=== PATIENT | male | born 1960 | race Hispanic/Latino ===

== ENCOUNTER 2017-05-31 04:17 | Emergency (ER) | payer OTHER ==
[~2017-05-31] VITALS: Ht 170.2 cm; Wt 77.1 kg
[~2017-05-31 04:17] MED LIST: IBUPROFEN PO; METFORMIN PO; PT DOESN'T KNOW MEDS; TYLENOL WITH C1 EACH PO
--- NOTE | 2017-05-31 05:23 | Diagnostic Imaging Report ---
FOOT LEFT COMPLETE HISTORY: Status post injury COMPARISON: None FINDINGS: Bones: No displaced fracture. Osseous alignment is within normal limits. Joints: The joint spaces are well-maintained. Soft tissues: The soft tissues appear unremarkable. IMPRESSION: No acute radiographic abnormality. Signed by: Dr. Per Echeverria M.D. on 05/31/2017 5:19 AM
--- NOTE | 2017-05-31 05:23 | Diagnostic Imaging Report ---
ANKLE 3+ VIEWS LEFT HISTORY: Status post injury COMPARISON: None FINDINGS: Bones: No displaced fracture. Osseous alignment is within normal limits. Joints: The joint spaces are well-maintained. Soft tissues: The soft tissues appear unremarkable. IMPRESSION: No acute radiographic abnormality. Signed by: Dr. Per Echeverria M.D. on 05/31/2017 5:20 AM
== END 2017-05-31 05:42 | disposition home or self-care (01) ==
LOC: ER 04:17
DX: S90.32XA Contusion of left foot, initial encounter (principal); Y93.39 Activity, other involving climbing, rappelling and jumping off; Y99.0 Civilian activity done for income or pay
CPT/HCPCS: 99283

== ENCOUNTER 2017-08-07 22:04 | Emergency (ER) | payer BC ==
[~2017-08-07] VITALS: Ht 170.2 cm; Wt 77.1 kg
--- OUTSIDE RECORDS SUMMARY | 2017-08-07 22:08 | XMS REPORT ---
[facility] Address Unknown Phone Unavailable Care Team Providers Care Medical Policy Specialist Name Role Phone MIAH PATTERSON Unavailable Unavailable Problems This patient has no known problems. Allergies, Adverse Reactions, Alerts This patient has no known allergies or adverse reactions. Medications This patient has no known medications. Results Test Description Test Time Test Comments Text Results Atomic Results Result Comments FOOT LEFT COMPLETE [place] [address] Patient Name: NATY MOHAMUD MR #: [id number] : 1960 Age/Sex: 57/M Req #: [id number] Adm Physician: Ordered by: MIAH PATTERSON MD Report #: [id number] Location: ER Room/Bed: ___ Procedure: [id number] DX/FOOT LEFT COMPLETE Exam Date: 05/31/17 Exam Time: 0435 REPORT STATUS: Signed FOOT LEFT COMPLETE HISTORY: Status post injury COMPARISON: None FINDINGS: Bones: No displaced fracture. Osseous alignment is within normal limits. Joints: The joint spaces are well-maintained. Soft tissues: The soft tissues appear unremarkable. IMPRESSION: No acute radiographic abnormality. Signed by: Dr. Per Echeverria M.D. on 2017 5:19 AM Dictated By: PER DUMONT MD [id number] Transcribed By: RACHEL on 518 COPY TO: MIAH PATTERSON MD ANKLE 3+ VIEWS LEFT [place] [address] Patient Name: NATY MOHAMUD MR #: [id number] : 1960 Age/Sex: 57/M Req #: [id number] Adm Physician: Ordered by: MIAH PATTERSON MD Report #: [id number] Location: ER Room/Bed: ___ Procedure: [id number] DX/ANKLE 3+ VIEWS LEFT Exam Date: 05/31/17 Exam Time: 0435 REPORT STATUS: Signed ANKLE 3+ VIEWS LEFT HISTORY: Status post injury COMPARISON: None FINDINGS: Bones: No displaced fracture. Osseous alignment is within normal limits. Joints: The joint spaces are well-maintained. Soft tissues: The soft tissues appear unremarkable. IMPRESSION: No acute radiographic abnormality. Signed by: Dr. Per Echeverria M.D. on 2017 5:20 AM Dictated By: PER DUMONT MD 9 Transcribed By: RACHEL on 519 COPY TO: MIAH PATTERSON MD
--- OUTSIDE RECORDS SUMMARY | 2017-08-07 22:08 | XMS REPORT | Continuity of Care Document ---
Author Author [facility] Organization [facility] Address [address] [place] [address] Phone Unavailable Care Team Providers Care Software Engineer Web Services Name Role Phone SALENA DIAZ MD PCP Insurance Providers Guarantor Naty Irwin Address [address] [place] [address] Email [email or web address] Ppo Policy Number [id number] Subscriber's Name Naty Irwin Relationship 18 Self / Same As Patient Group Number [id number] Group Name [employer] Effective Date 16 Advance Directives Directive Response Recorded Date/Time Does the patient have an advance directive? No 01/22/14 10:42am If yes, is advance directive on file with [facility]? No 01/22/14 10:42am If not on file with [facility] will patient provide a copy? No 11/01/15 1:30am Do you have a Directive to Physician? No 05/31/17 4:14am Do you have a Medical Power of Academic Coordinator? No 05/31/17 4:14am Do you have an out of hospital Do Not Resuscitate Order? No 05/31/17 4:14am Do you have any special needs we should be aware of? No 05/31/17 4:14am Do you have a support person here with you today? No 05/31/17 4:14am Did patient receive Notice of Privacy Practices? Yes 05/31/17 4:14am Did patient receive patient rights and responsibilities? Yes 05/31/17 4:14am Problems Medical Problem Onset Date Status Chest wall pain Unknown Acute Dehydration Unknown Acute Weakness Unknown Acute Medications Current Home Medications Medication Dose Units Route Directions Days Qty Instructions Start Date Metformin 250 Mg Oral Twice A Day Past Home Medications Medication Directions Ordered Status Acetaminophen With Codeine (Tylenol With Codeine #3 Tablet) 1 Each Tablet, 1-2 Tab Oral Every 6 Hours as needed for Pain Discontinued Ibuprofen , 800 Mg Oral As Needed Discontinued Pt Doesn't Know Meds , Discontinued Social History Social History Problem Response Recorded Date/Time Onset Date Status Hx Psychiatric Problems No 01/22/2014 10:42am Not Applicable Not Applicable Smoking Status Start Date Stop Date Never Smoker Hospital Discharge Instructions No hospital discharge instruction information available. Plan of Care Discharge Date 05/31/17 5:42am Disposition HOME, SELF-CARE Condition at Discharge Stable Instructions/Education Provided Contusion RICE Therapy Forms Provided Work/School Excuse Prescriptions See Medication Section Referrals LOR GARCIA MD Order Date: As needed Address: [address] [place] [address] [place] [id number] DHARMESH HUTCHISON MD Address: [address] [place] [address] [place] [address] Additional Instructions/Education WEAR SHOE DIRECTED WEIGHT BEARING TOLERATED FOLLOW UP WITH ORTHRO IN 5 DAYS IF PAIN IN NOTE BETTER TAKE TYLENOL AND MOTRIN NEEDED FOR PAIN RETURN TO THE ER NEEDED Functional Status No functional status information available. Allergies, Adverse Reactions, Alerts No known allergies. Immunizations No immunization information available. Vital Signs Acute Vital Signs Vital Response Date/Time Temperature (Fahrenheit) 98.4 degrees F (97.6 - 99.5) 10/24/2016 7:27pm Pulse Pulse Rate (adult) 64 bpm (60 - 90) 10/24/2016 7:27pm Respiratory Rate 17 bpm (12 - 24) 10/24/2016 7:27pm Blood Pressure 129/76 mm Hg 10/24/2016 7:27pm Height 5 ft 7 in 05/31/2017 4:44am Weight 170 lb 05/31/2017 4:44am Body Mass Index 26.6 kg/m^2 05/31/2017 4:44am Results Laboratory Results Test Name Result Units Flags Reference Collection Date/Time Result Date/ Time Comments White Blood Count 8.83 x10e3/uL 4.8-10.8 10/24/2016 6:03pm 10/24/2016 6 :17pm Red Blood Count 4.60 x10e6/uL 4.3-5.7 10/24/2016 6:03pm 10/24/2016 6: 17pm Hemoglobin 13.6 g/dL L 14.0-18.0 10/24/2016 6:03pm 10/24/2016 6:17pm Hematocrit 40.8 % 38.2-49.6 10/24/2016 6:03pm 10/24/2016 6:17pm Mean Corpuscular Volume 88.7 fL 81-99 10/24/2016 6:03pm 10/24/2016 6: 17pm Mean Corpuscular Hemoglobin 29.6 pg 28-32 10/24/2016 6:03pm 10/24/2016 6:17pm Mean Corpuscular Hemoglobin Concent 33.3 g/dL 31-35 10/24/2016 6:03pm 10/24/2016 6:17pm Red Cell Distribution Width 14.6 % H 11.7-14.4 10/24/2016 6:03pm 2016 6:17pm Platelet Count 234 x10e3/uL 140-360 10/24/2016 6:03pm 10/24/2016 6: 17pm Neutrophils (%) (Auto) 49.5 % 38.7-80.0 10/24/2016 6:03pm 10/24/2016 6: 17pm Lymphocytes (%) (Auto) 37.9 % 18.0-39.1 10/24/2016 6:03pm 10/24/2016 6: 17pm Monocytes (%) (Auto) 8.4 % 4.4-11.3 10/24/2016 6:03pm 10/24/2016 6: 17pm Eosinophils (%) (Auto) 3.4 % 0.0-6.0 10/24/2016 6:03pm 10/24/2016 6: 17pm Basophils (%) (Auto) 0.6 % 0.0-1.0 10/24/2016 6:03pm 10/24/2016 6:17pm IM GRANULOCYTES % 0.2 % 0.0-1.0 10/24/2016 6:03pm 10/24/2016 6:17pm Neutrophils # (Auto) 4.4 2.1-6.9 10/24/2016 6:03pm 10/24/2016 6:17pm Lymphocytes # (Auto) 3.4 H 1.0-3.2 10/24/2016 6:03pm 10/24/2016 6: 17pm Monocytes # (Auto) 0.7 0.2-0.8 10/24/2016 6:03pm 10/24/2016 6:17pm Eosinophils # (Auto) 0.3 0.0-0.4 10/24/2016 6:03pm 10/24/2016 6:17pm Basophils # (Auto) 0.1 0.0-0.1 10/24/2016 6:03pm 10/24/2016 6:17pm Absolute Immature Granulocyte (auto 0.02 x10e3/uL 0-0.1 10/24/2016 6: 03pm 10/24/2016 6:17pm Urine Color YELLOW YELLOW 10/24/2016 6:01pm 10/24/2016 6:31pm Urine Clarity CLEAR CLEAR 10/24/2016 6:01pm 10/24/2016 6:31pm Urine Specific [place] 1.030 H 1.010-1.025 10/24/2016 6:01pm 2016 6:31pm Urine pH 5 5 - 7 10/24/2016 6:01pm 10/24/2016 6:31pm Urine Leukocyte Esterase NEGATIVE NEGATIVE 10/24/2016 6:01pm 2016 6:31pm Urine Nitrite NEGATIVE NEGATIVE 10/24/2016 6:01pm 10/24/2016 6:31pm Urine Protein 1+ H NEGATIVE 10/24/2016 6:01pm 10/24/2016 6:31pm Urine Glucose (UA) NEGATIVE NEGATIVE 10/24/2016 6:01pm 10/24/2016 6: 31pm Urine Ketones NEGATIVE NEGATIVE 10/24/2016 6:01pm 10/24/2016 6:31pm Urine Urobilinogen 0.2 mg/dL 0.2 - 1 10/24/2016 6:01pm 10/24/2016 6: 31pm Urine Bilirubin NEGATIVE NEGATIVE 10/24/2016 6:01pm 10/24/2016 6: 31pm Urine Blood NEGATIVE NEGATIVE 10/24/2016 6:01pm 10/24/2016 6:31pm Urine WBC 0-5 /HPF 0-5 10/24/2016 6:01pm 10/24/2016 6:35pm Urine RBC 0-5 /HPF 0-5 10/24/2016 6:01pm 10/24/2016 6:35pm Urine Bacteria FEW /HPF NONE 10/24/2016 6:01pm 10/24/2016 6:35pm Urine Epithelial Cells FEW /LPF NONE 10/24/2016 6:01pm 10/24/2016 6: 35pm Urine Mucus MANY H RARE 10/24/2016 6:01pm 10/24/2016 6:35pm Sodium Level 143 mmol/L 136-145 10/24/2016 6:03pm 10/24/2016 6:36pm Potassium Level 4.6 mmol/L 3.5-5.1 10/24/2016 6:03pm 10/24/2016 6:36pm Chloride Level 108 mmol/L H 98-107 10/24/2016 6:03pm 10/24/2016 6:36pm Carbon Dioxide Level 23 mmol/L 22-29 10/24/2016 6:03pm 10/24/2016 6: 36pm Anion Gap 16.6 mmol/L H 8-16 10/24/2016 6:03pm 10/24/2016 6:36pm Blood Urea Nitrogen 15 mg/dL 7-26 10/24/2016 6:03pm 10/24/2016 6:36pm Creatinine 0.90 mg/dL 0.72-1.25 10/24/2016 6:03pm 10/24/2016 6:36pm BUN/Creatinine Ratio 17 6-25 10/24/2016 6:03pm 10/24/2016 6:36pm Estimat Glomerular Filtration Rate > 60 ML/MIN 60- 10/24/2016 6:03pm 6:36pm Ranges were taken from the National Kidney Disease Education Program and the National Kid[employer] Foundation literature. Reference ranges: 60 or greater: Normal 16-59 (for 3 consecutive months): Chronic kidney disease 15 or less: Kidney failure Glucose Level 102 mg/dL 74-118 10/24/2016 6:03pm 10/24/2016 6:36pm Calcium Level 9.8 mg/dL 8.4-10.2 10/24/2016 6:03pm 10/24/2016 6:36pm Total Bilirubin 0.3 mg/dL 0.2-1.2 10/24/2016 6:03pm 10/24/2016 6:36pm Aspartate Amino Transf (AST/SGOT) 25 IU/L 5-34 10/24/2016 6:03pm 2016 6:36pm Alanine Aminotransferase (ALT/SGPT) 20 IU/L 0-55 10/24/2016 6:03pm 03/2016 6:36pm Total Protein 7.7 g/dL 6.5-8.1 10/24/2016 6:03pm 10/24/2016 6:36pm Albumin 4.0 g/dL 3.5-5.0 10/24/2016 6:03pm 10/24/2016 6:36pm Globulin 3.7 g/dL H 2.3-3.5 10/24/2016 6:03pm 10/24/2016 6:36pm Albumin/Globulin Ratio 1.1 0.8-2.0 10/24/2016 6:03pm 10/24/2016 6: 36pm Alkaline Phosphatase 76 IU/L 40-150 10/24/2016 6:03pm 10/24/2016 6: 36pm Creatine Kinase 378 IU/L H 30-200 10/24/2016 6:03pm 10/24/2016 6:36pm Creatine Kinase MB 4.20 ng/mL 0.00-5.00 10/24/2016 6:03pm 10/24/2016 6: 43pm Troponin I 0.005 ng/mL 0-0.300 10/24/2016 6:03pm 10/24/2016 6:43pm Procedures Procedure Status Date Provider(s) Computed tomography of brain without radiopaque contrast Active 10/24/16 EDWARDO COLLADO MD Encounters Encounter Location Arrival/Admit Date Discharge/Depart Date Attending Provider Departed Emergency Room [facility] 05/31/17 4:17am 5:42am MIAH PATTERSON MD Departed Emergency Room [facility] 10/24/16 5:40pm 7:37pm EDWARDO COLLADO MD
== END 2017-08-07 23:08 | disposition left against medical advice (07) ==
LOC: ER 22:04

== ENCOUNTER 2017-09-10 10:41 | Emergency (ER) | payer OTHER ==
[~2017-09-10] VITALS: Ht 170.2 cm; Wt 78.0 kg
--- NOTE | 2017-09-10 11:17 | Diagnostic Imaging Report ---
PROCEDURE:LOWER LEG LEFT TECHNIQUE:AP and lateral views left tibia totaling 3 radiographs. INDICATION:Fall COMPARISON:None. FINDINGS: The left tibia, fibula and imaged regional skeleton are intact and in anatomic alignment. CONCLUSION: No evidence of acute traumatic injury. Dictated by: Davon Colvin M.D. on 09/10/2017 at 11:20 Electronically approved by: Davon Colvin M.D. on 09/10/2017 at 11:20
[2017-09-10] MEDS ORDERED: KETOROLAC TROMETHAMINE 30 MG/ML VIAL IV STA (11:52)
[2017-09-10] MEDS ORDERED: KETOROLAC TROMETHAMINE 60 MG/2 ML VIAL IM ONE (12:00)
[2017-09-10] MEDS ORDERED: DIAZEPAM 2 MG TAB PO ONE (12:00)
--- NOTE | 2017-09-10 13:13 | Diagnostic Imaging Report ---
PROCEDURE:LUMBAR 3 VIEW TECHNIQUE:AP, lateral and cone-down lateral views lumbar spine. INDICATION:Fall. COMPARISON:None. FINDINGS: 5 [id number] lumbar vertebral bodies. Vertebral body and disc space height are maintained. Intact facets. Image regional skeleton is intact. Trace endplate degenerative change at the superior anterior corner of L5. CONCLUSION: No evidence of acute traumatic injury. Dictated by: Davon Colvin M.D. on 09/10/2017 at 13:17 Electronically approved by: Davon Colvin M.D. on 09/10/2017 at 13:17
[2017-09-10 14:12] VITALS: BP 125/60
--- NOTE | 2017-09-10 15:52 | Diagnostic Imaging Report ---
History: \S\FELL HIT OCCIPUT Comparison studies: Head CT's on 09/08/2015 and 10/24/2016 Technique: Axial images were obtained from the skull base to the vertex. Coronal and sagittal reconstructions obtained from the axial data. Findings: Scalp/skull: No abnormalities. No fractures, blastic or lytic lesions. Extra-axial spaces: No masses. No fluid collections. Brain sulci: Appropriate for age. Ventricles: Normal in size and configuration. No hydrocephalus. Parenchyma: No abnormal densities. No masses, hemorrhage, acute or chronic cortical vascular insults. Sellar/suprasellar region: No abnormalities Craniocervical junction: Patent foramen magnum. No Chiari one malformation. IMPRESSION: No abnormalities. No changes when compared to the previous head CT's. Preliminary report provided to Dr. Greco at 12:02 PM on 09/10/[address] Deng. Signed by: Dr. Keenan Potter M.D. on 09/10/2017 3:48 PM
--- NOTE | 2017-09-10 15:54 | Diagnostic Imaging Report ---
History: Fall Comparison studies: None Technique: Axial images were obtained through the cervical region.. Coronal and sagittal images reconstructed from the axial data.. Intravenous contrast: None Findings: Airway: Patent. Fractures: None. Soft tissues: No gross abnormalities. Atlantoaxial articulation: Intact. Alignment: Normal lordosis. No scoliosis. Cervicomedullary junction: No abnormalities. The foramen magnum is patent. Vertebrae: No infection or neoplasm. Degenerative changes: 3 mm central disc protrusion at C4-5 does not result in spinal canal stenosis. Mild right foraminal stenosis at C6-C7 due to uncoarthrosis. IMPRESSION: No acute abnormalities. Cannot adequately evaluate for spinal cord, vascular or ligament abnormalities. Preliminary report provided to Dr. Greco at 12:02 PM on 09/10/[address] Deng. Signed by: Dr. Keenan Potter M.D. on 09/10/2017 3:50 PM
== END 2017-09-10 14:30 | disposition home or self-care (01) ==
LOC: ER 10:41
DX: S00.83XA Contusion of other part of head, initial encounter (principal); S80.12XA Contusion of left lower leg, initial encounter; S30.0XXA Contusion of lower back and pelvis, initial encounter; S33.5XXA Sprain of ligaments of lumbar spine, initial encounter; W01.0XXA Fall on same level from slipping, tripping and stumbling without subsequent striking against object, initial encounter; Y93.01 Activity, walking, marching and hiking; Y92.238 Other place in hospital as the place of occurrence of the external cause
CPT/HCPCS: 70450; 72100; 72125; 99284; J1885

== ENCOUNTER → 2017-09-15 | Day surgery (SDC) | payer BC ==
[~2017-09-15] MED LIST changes: +FENTANYL CITRATE/PF 100MCG/2 ML INJ ONE; +LIDOCAINE HCL 2% LOCAL INJ 5 ML SDV VIAL INJ ONE; +MIDAZOLAM HCL 2 MG/2 ML VIAL ONE; +PROPOFOL IV EMULSION 10 MG/ML 20 ML VIAL ONE
--- NOTE | 2017-09-15 18:58 | Operative Report ---
DATE OF PROCEDURE: September 15, 2017 REFERRING PHYSICIAN: Dr. Jay Wright. OPERATIONS PERFORMED 1. Esophagogastroduodenoscopy with esophageal dilatation and biopsies. 2. Colonoscopy with polypectomy. INDICATIONS FOR EGD: Dysphagia, history of heartburn, and indigestion. INDICATIONS FOR COLONOSCOPY: Colorectal cancer screening, personal history of colon polyps. MEDICATION: Patient was done under MAC. Please see anesthesiologist's note. PROCEDURE IN DETAIL: With the patient in left lateral decubitus position, flexible fiberoptic Olympus gastroscope was introduced into the esophagus under direct visualization without any difficulty. There were some erosions noted in the distal esophagus. Tongues of velvety red mucosa were noted to extend proximally from the GE junction and biopsies were obtained to rule out Gasca's. There was some patchy nodularity noted at the GE junction and biopsies were obtained. A mild stricture was noted at the GE junction that was dilated to size 52-Mauritanian Jasso. The scope was then advanced with ease into the stomach traversing a small hiatal hernia. Mucosa overlying the antrum and the body revealed some patchy erythema and low-grade to moderate edema and biopsies were obtained sent to stain for H. pylori. Pylorus appeared to be of normal contour and shape, was intubated with ease, and the scope was advanced all the way to the 2nd portion of the duodenum. The scope was then withdrawn slowly and mucosa overlying the proximal 2nd portion as well as the duodenal bulb appeared to be within normal limits. The scope was then withdrawn back into the stomach and retroflexed. Mucosa overlying the fundus and the cardia appeared to be within normal limits. The scope was then straightened out and was subsequently withdrawn. Patient tolerated the procedure well. IMPRESSION 1. Distal esophagitis. 2. Rule out Gasca's esophagus. 3. Gastroesophageal junction, with patchy nodularity, biopsied. 4. 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 5. Small hiatal hernia. 6. Gastritis, biopsied. Biopsies sent to stain for H. pylori. PLAN: Follow up histology. Initiate Protonix 40 mg 1 p.o. q.a.m. a.c. Patient was then turned around and after adequate lubrication of the anal canal, a flexible fiberoptic Olympus colonoscope was inserted into the rectum with ease and advanced to the proximal ascending colon. Prep overall was poor with [id number] amount of retained fecal material in the colon. The scope was then withdrawn slowly. Whatever was visualized, the mucosa overlying the ascending, transverse, and descending appeared to be within normal limits. One polyp was hot biopsied from the sigmoid and 3 polyps were hot biopsied from the rectum. The scope was then retroflexed into the distal rectum and small internal hemorrhoids were noted, none of which is actively bleeding. The scope was then straightened out and was subsequently withdrawn. Patient tolerated the procedure well. IMPRESSION 1. Poor prep. 2. Sigmoid colon polyp, hot biopsied. 3. Rectal polyps, hot biopsied x3. 4. Internal hemorrhoids, none actively bleeding. PLAN: Follow up histology. Patient will need a repeat colonoscopy after a better prep. Job#: [id number] PKU cc:Dr. Jay Wright
== END | disposition home or self-care (01) ==
LOC: OR 11:07
PROVIDERS: ATTEND Internal Medicine Gastroenterology
DX: Z12.11 Encounter for screening for malignant neoplasm of colon (principal); K63.5 Polyp of colon; K62.1 Rectal polyp; K22.2 Esophageal obstruction; K29.70 Gastritis, unspecified, without bleeding; K22.10 Ulcer of esophagus without bleeding; K21.0 Gastro-esophageal reflux disease with esophagitis; K31.89 Other diseases of stomach and duodenum; K44.9 Diaphragmatic hernia without obstruction or gangrene; K64.8 Other hemorrhoids; K59.00 Constipation, unspecified; J45.909 Unspecified asthma, uncomplicated; E11.9 Type 2 diabetes mellitus without complications; Z01.810 Encounter for preprocedural cardiovascular examination; Z79.84 Long term (current) use of oral hypoglycemic drugs; Z87.891 Personal history of nicotine dependence
CPT/HCPCS: 36415; 43239; 43450; 45384; 82948; 93005; J2001; J2250

== ENCOUNTER 2017-09-23 11:39 | Emergency (ER) | payer BC ==
[~2017-09-23] VITALS: Ht 170.2 cm; Wt 78.0 kg
[~2017-09-23 11:39] MED LIST changes: -FENTANYL CITRATE/PF 100MCG/2 ML INJ ONE; -LIDOCAINE HCL 2% LOCAL INJ 5 ML SDV VIAL INJ ONE; -MIDAZOLAM HCL 2 MG/2 ML VIAL ONE; -PROPOFOL IV EMULSION 10 MG/ML 20 ML VIAL ONE
[2017-09-23] MEDS ORDERED: HYDROCODONE/APAP 5MG-325MG TAB PO ONE (12:15)
--- NOTE | 2017-09-23 12:44 | Diagnostic Imaging Report ---
EXAMINATION: Head CT HISTORY: Status post fall, headache for the last 2 weeks COMPARISON: Head CT on 09/10/2017 TECHNIQUE: Multidetector axial images were obtained without contrast from the foramen magnum to the vertex . The images were reconstructed using brain and bone algorithms. Thin section brain images were reformatted into coronal and sagittal planes. Intravenous contrast: None. Motion/streaking artifact limits the evaluation of the skull base and posterior cranial fossa. FINDINGS: Parenchyma: 1. No abnormal densities. 2. No mass or hemorrhage. No CT evidence of acute territorial vascular insult. Extra-axial spaces:No abnormal density. No extra-axial fluid collections Brain volume: Normal for age. Ventricles: No hydrocephalus or displacement. Arteries: No density suggestive of thrombus. Dural sinuses: No abnormal density. Extra-axial spaces: No abnormal density. Foramen magnum: No mass, Chiari malformation, or basilar invagination. Sella: No obvious mass. Paranasal/mastoid sinuses: Imaged portions unremarkable. Skull/Scalp: No lytic or blastic lesions. No fractures. IMPRESSION: No intracranial abnormalities, particularly no hemorrhage. Unchanged from recent head CT 09/10/2017 Signed by: Dr. Anna Tucker M.D. on 09/23/2017 12:40 PM
== END 2017-09-23 13:24 | disposition home or self-care (01) ==
LOC: ER 11:39
DX: G44.311 Acute post-traumatic headache, intractable (principal); W01.0XXA Fall on same level from slipping, tripping and stumbling without subsequent striking against object, initial encounter; Y93.01 Activity, walking, marching and hiking; Y92.481 Parking lot as the place of occurrence of the external cause; E11.9 Type 2 diabetes mellitus without complications
CPT/HCPCS: 70450; 99284

== ENCOUNTER → 2019-06-10 | Outpatient (CLI) | payer OTHER | LOC: RAD 05:00 → EDSTATUS 06-14 13:00 | PROVIDERS: ATTEND Internal Medicine Gastroenterology | DX: Z01.818 Encounter for other preprocedural examination (principal); R13.10 Dysphagia, unspecified; R12 Heartburn; K29.70 Gastritis, unspecified, without bleeding; K20.9 Esophagitis, unspecified; Z86.010 Personal history of colon polyps | CPT/HCPCS: 93005 ==

== ENCOUNTER 2019-06-21 11:35 | Emergency (ER) | payer OTHER ==
[~2019-06-21] VITALS: Ht 170.2 cm; Wt 78.0 kg
[2019-06-21] MEDS ORDERED: KETOROLAC TROMETHAMINE 30 MG/ML VIAL IV STA (11:48)
[2019-06-21] MEDS ORDERED: SODIUM CHLORIDE 0.9% 1000ML 1,000 ML IV STA (11:48)
[2019-06-21] MEDS ORDERED: DIPHENHYDRAMINE HCL INJ 50 MG/ML VIAL IV ONE (12:00)
[2019-06-21] MEDS ORDERED: METOCLOPRAMIDE HCL 10 MG/2ML VIAL IV ONE (12:00)
--- NOTE | 2019-06-21 12:34 | Diagnostic Imaging Report ---
Exam: Head CT without contrast History: Headache, facial and extremity numbness Comparison studies: Multiple prior head CTs which date to 09/08/2015, most recent head CT of 09/23/2017 Technique: Axial images were obtained from the skull base to the vertex. Coronal and sagittal images reconstructed from the axial data. Dose modulation, iterative reconstruction, and/or weight based adjustment of the mA/kV was utilized to reduce the radiation dose to as low as reasonably achievable. Radiation dose: Total DLP: 921.4 mGy*cm. Estimated effective dose: DLP x 0.015 Intravenous contrast: None Findings: Scalp: No abnormalities. Bones: No fractures, blastic or lytic lesions. Brain sulci: Appropriate for age. Ventricles: Normal in size and configuration. No hydrocephalus. Extra-axial spaces: No masses, no fluid collection. Parenchyma: No abnormal densities. No masses, hemorrhage, acute or chronic vascular insults. Sellar/suprasellar region: No abnormalities. Craniocervical junction: Patent foramen magnum. No Chiari one malformation. Included paranasal sinuses: Clear. Middle ear and included mastoids: Clear. IMPRESSION: No abnormalities. No changes from the previous head CT's. Signed by: Dr. Darshan Rayo M.D. on 06/21/2019 12:30 PM
== END 2019-06-21 14:28 | disposition home or self-care (01) ==
LOC: ER 11:35
DX: G43.009 Migraine without aura, not intractable, without status migrainosus (principal); I10 Essential (primary) hypertension; Z83.3 Family history of diabetes mellitus; Z82.49 Family history of ischemic heart disease and other diseases of the circulatory system
CPT/HCPCS: 70450; 99284; J1200; J1885; J2765; J7030

== ENCOUNTER 2019-10-16 23:52 | Observation (INO) | payer OTHER ==
[~2019-10-16] VITALS: Ht 170.2 cm; Wt 78.0 kg
[2019-10-16] MEDS ORDERED: IBUPROFEN200 MG PO (23:58)
[2019-10-16] MEDS ORDERED: TOPIRAMATE100 MG PO (23:58)
[2019-10-16] MEDS ORDERED: CRESTOR10 MG PO (23:58)
[2019-10-16] MEDS ORDERED: IBUPROFEN400 MG PO (23:58)
[2019-10-16] MEDS ORDERED: PROPRANOLOL HCL10 MG PO (23:58)
[2019-10-17] VITALS (9 sets, daily range): BP systolic 121–148; BP diastolic 50–72
--- NOTE | 2019-10-17 | Emergency Department Note ---
History of Present Illnes History of Present Illness Chief Complaint: Chest Pain History of Present Illness This is a 59 year old male arrives to the ED with substernal chest pain that began 30 minutes prior to arrival, patient history of high cholesterol and diabetes.. Historian: Patient Floor Attendant Required: No Onset (how long ago): hour(s) Radiation: Reports non-radiation Severity: mild Onset quality: sudden Duration (how long): hour(s) Timing of current episode: constant, intermittent Progression: waxing and waning Chronicity: new Context: Denies recent illness Relieving factors: none Exacerbating factors: none Associated symptoms: Reports denies other symptoms, Reports chest pain; Denies loss of appetite, Denies malaise, Denies nausea/vomiting, Denies rash Treatments prior to arrival: none Past Medical/Family History Physician Review I have reviewed the patient's past medical and family history. Any updates have been documented here. Past Medical History Recent Fever: No New/Unexplained Change in Ment: No Past Medical History: Diabetes, Migraines, GERD, Hyperlipedemia Past Surgical History: Cholecysctectomy, Back Surgery Other Surgery: LUMBAR SX 2014 KNEE SX x2 Other Last Tetanus: 2017 Review of Systems Review of Systems Constitutional: Reports no symptoms EENTM: Reports no symptoms Cardiovascular: Reports as per HPI, Reports chest pain Respiratory: Reports no symptoms Gastrointestinal: Reports no symptoms Genitourinary: Reports no symptoms Musculoskeletal: Reports no symptoms Integumentary: Reports no symptoms Neurological: Reports no symptoms Psychological: Reports no symptoms Endocrine: Reports no symptoms Hematological/Lymphatic: Reports no symptoms Physical Exam Related Data Allergies: Coded Allergies: No Known Allergies (Unverified , 10/24/16) Vital signs reviewed: Yes Physical Exam CONSTITUTIONAL Constitutional: Present well-developed, Present well-nourished HENT HENT: Present normocephalic, Present atraumatic, Present oropharynx clear/moist, Present nose normal HENT L/R: Present left ext ear normal, Present right ext ear normal EYES Eyes: Reports PERRL, Reports conjunctivae normal NECK Neck: Present ROM normal PULMONARY Pulmonary: Present effort normal, Present breath sounds normal CARDIOVASCULAR Cardiovascular: Present regular rhythm, Present heart sounds normal, Present capillary refill normal, Present normal rate GASTROINTESTINAL Abdominal: Present soft, Present nontender, Present bowel sounds normal GENITOURINARY Genitourinary: Present exam deferred SKIN Skin: Present warm, Present dry MUSCULOSKELETAL Musculoskeletal: Present ROM normal NEUROLOGICAL Neurological: Present alert, Present oriented x 3, Present no gross motor or sensory deficits PSYCHOLOGICAL Psychological: Present mood/affect normal, Present judgement normal Results Laboratory Lab results reviewed: Yes Laboratory comments Laboratory Tests Test 10/17/19 00:57 10/17/19 00:10 10/16/19 23:58 Urine Opiates Screen Negative (NEGATIVE) Urine Methadone Screen Negative (NEGATIVE) Urine Barbiturates Screen Negative (NEGATIVE) Urine Phencyclidine Screen Negative (NEGATIVE) Urine Amphetamines Screen Negative (NEGATIVE) Urine Methamphetamines Screen Negative (NEGATIVE) Urine Benzodiazepines Screen Negative (NEGATIVE) Urine Cocaine Screen Negative (NEGATIVE) Urine Cannabinoids Screen Negative (NEGATIVE) White Blood Count 9.32 x10e3/uL (4.8-10.8) Red Blood Count 4.50 x10e6/uL (4.3-5.7) Hemoglobin 12.3 g/dL (14.0-18.0) Hematocrit 39.7 % (38.2-49.6) Mean Corpuscular Volume 88.2 fL (81-99) Mean Corpuscular Hemoglobin 27.3 pg (28-32) Mean Corpuscular Hemoglobin Concent 31.0 g/dL (31-35) Red Cell Distribution Width 15.3 % (11.7-14.4) Platelet Count 241 x10e3/uL (140-360) Neutrophils (%) (Auto) 39.9 % (38.7-80.0) Lymphocytes (%) (Auto) 46.6 % (18.0-39.1) Monocytes (%) (Auto) 9.7 % (4.4-11.3) Eosinophils (%) (Auto) 2.6 % (0.0-6.0) Basophils (%) (Auto) 0.8 % (0.0-1.0) Neutrophils # (Auto) 3.7 (2.1-6.9) Lymphocytes # (Auto) 4.3 (1.0-3.2) Monocytes # (Auto) 0.9 (0.2-0.8) Eosinophils # (Auto) 0.2 (0.0-0.4) Basophils # (Auto) 0.1 (0.0-0.1) Absolute Immature Granulocyte (auto 0.04 x10e3/uL (0-0.1) Sodium Level 143 mmol/L (136-145) Potassium Level 3.8 mmol/L (3.5-5.1) Chloride Level 109 mmol/L (98-107) Carbon Dioxide Level 23 mmol/L (22-29) Anion Gap 14.8 mmol/L (8-16) Blood Urea Nitrogen 14 mg/dL (7-26) Creatinine 0.78 mg/dL (0.72-1.25) Estimat Glomerular Filtration Rate > 60 ML/MIN (60-) BUN/Creatinine Ratio 18 (6-25) Glucose Level 92 mg/dL (74-118) Calcium Level 9.9 mg/dL (8.4-10.2) Total Bilirubin 0.2 mg/dL (0.2-1.2) Aspartate Amino Transf (AST/SGOT) 38 IU/L (5-34) Alanine Aminotransferase (ALT/SGPT) 35 IU/L (0-55) Alkaline Phosphatase 66 IU/L (40-150) Creatine Kinase 861 IU/L (30-200) Creatine Kinase MB 11.60 ng/mL (0-5.0) Troponin I 0.054 ng/mL (0-0.300) Total Protein 7.6 g/dL (6.5-8.1) Albumin 3.9 g/dL (3.5-5.0) Globulin 3.7 g/dL (2.3-3.5) Albumin/Globulin Ratio 1.1 (0.8-2.0) Lipase 67 U/L (8-78) Imaging Imaging results reviewed: Yes Procedures 12 Lead ECG Interpretation ECG Interpretation : ECG: ECG 1 Floor Attendant: Interpreted by ED physician Rhythm: sinus rhythm Rate: normal QRS axis: normal ST segments normal: Yes T waves normal: Yes Clinical Impression: normal ECG Clinical Decision Tools HEART Score HEART Score: HEART Score Response (Comments) Value History Moderately suspicious 1 EKG Normal 0 Age 45 - 65 1 Risk factors 1 or 2 risk factors 1 Troponin 1-3x normal limit Total 3 Assessment & Plan Medical Decision Making MDM 51-year-old male arrives to the ED with chest pain that began just prior to arrival. Patient with concerning past medical history, typical sounding chest pain, admitted for serial cardiac markers placed on telemetry. Assessment & Plan Final Impression: (1) Chest pain Depart Disposition: ADMITTED Home Meds Reported Medications Rosuvastatin Calcium (CRESTOR) 10 Mg Tab, 10 MG PO DAILY THERAPEUTICALLY SUBSTITUTED WITH SIMVASTATIN 40MG 10/16/19 Topiramate (TOPIRAMATE) 100 Mg Tablet, 100 MG PO DAILY, #30 TAB 10/16/19 Propranolol Hcl (PROPRANOLOL HCL) 10 Mg Tablet, 10 MG PO BID, TAB 10/16/19 Ibuprofen (IBUPROFEN) 400 Mg Tablet, 800 MG PO Q6H PRN for Mild Pain (1-3) or Fever>100.8, TAB 10/16/19 Ibuprofen (IBUPROFEN) 200 Mg Capsule, 200 MG PO, TAB 10/16/19 [Metformin] 500 No Conflict Check, 500 MG PO BID 01/20/14 EBONY CAVAZOS, Oct 17, 2019 00:00
[2019-10-17 00:11] LABS: BASOPHILS # (AUTO) 0.1 (0.0-0.1); BASOPHILS % 0.8 % (0.0-1.0); EOSINOPHILS # (AUTO) 0.2 (0.0-0.4); EOSINOPHILS % 2.6 % (0.0-6.0); HEMATOCRIT 39.7 % (38.2-49.6); HEMOGLOBIN 12.3 g/dL (14.0-18.0); LYMPHOCYTES # (AUTO) 4.3 (1.0-3.2); LYMPHOCYTES % 46.6 % (18.0-39.1); MEAN CORPUSCULAR HEMOGLOBIN 27.3 pg (28-32); MEAN CORPUSCULAR VOLUME 88.2 fL (81-99); MONOCYTES # (AUTO) 0.9 (0.2-0.8); MONOCYTES % 9.7 % (4.4-11.3); NEUTROPHILS # (AUTO) 3.7 (2.1-6.9); NEUTROPHILS % 39.9 % (38.7-80.0); PLATELET COUNT 241 x10e3/uL (140-360); RED CELL DISTRIBUTION WIDTH 15.3 % (11.7-14.4)
[2019-10-17 00:31] LABS: ALANINE AMINOTRANSFERASE 35 IU/L (0-55); ALBUMIN 3.9 g/dL (3.5-5.0); ALBUMIN/GLOBULIN RATIO 1.1 (0.8-2.0); ALKALINE PHOSPHATASE 66 IU/L (40-150); ANION GAP 14.8 mmol/L (8-16); BLOOD UREA NITROGEN 14 mg/dL (7-26); BUN/CREATININE RATIO 18 (6-25); CALCIUM 9.9 mg/dL (8.4-10.2); CARBON DIOXIDE 23 mmol/L (22-29); CHLORIDE 109 mmol/L (98-107); CREATINE KINASE 861 IU/L (30-200); CREATININE, SERUM 0.78 mg/dL (0.72-1.25); EST GLOMERULAR FILTRATION RATE > 60 ML/MIN (60-); GLUCOSE 92 mg/dL (74-118); POTASSIUM 3.8 mmol/L (3.5-5.1); SODIUM 143 mmol/L (136-145)
[2019-10-17] MEDS ORDERED: ASPIRIN 81 MG CHEW TAB PO ONE ×2 (00:45)
[2019-10-17 00:47] LABS: AMPHETAMINES SCREEN,URINE NEGATIVE (NEGATIVE); BENZODIAZEPINES SCREEN,URINE NEGATIVE (NEGATIVE); PHENCYCLIDINE SCREEN,URINE NEGATIVE (NEGATIVE)
--- NOTE | 2019-10-17 01:10 | Diagnostic Imaging Report ---
EXAMINATION: CHEST SINGLE (PORTABLE) INDICATION: Chest pain. COMPARISON: None FINDINGS: TUBES and LINES: None. LUNGS: Lungs are well inflated. There is no evidence of pneumonia or pulmonary edema. PLEURA: No pleural effusion or pneumothorax. HEART AND MEDIASTINUM: The cardiomediastinal silhouette is unremarkable. BONES AND SOFT TISSUES: No acute osseous lesion. Soft tissues are unremarkable. UPPER ABDOMEN: No free air under the diaphragm. IMPRESSION: No acute thoracic abnormality. Signed by: Dr. Mayur Irby MD on 10/17/2019 1:07 AM
[2019-10-17] MEDS ORDERED: NITROGLYCERIN 0.4 MG SUBL ONE (01:44)
[2019-10-17] MEDS ORDERED: NITROGLYCERIN 0.4 MG SUBL SL ONE (01:45)
--- NOTE | 2019-10-17 02:15 | NUR ---
RECEIVED REPORT FROM [facility]SEPH[facility] ER NURSE. PATIENT ARRIVED VIA WHEELCHAIR TO THE UNIT WITH BELONGINGS. PATIENT IN NO PAIN OR DISTRESS. CALL LIGHT WITHIN REACH.
--- NOTE | 2019-10-17 07:00 | NUR ---
BEDSIDE SHIFT REPORT RECEIVED FROM THE CYBER SYSTEMS ADMINISTRATOR RN. EDUCATED PT ABOUT FALL PRECAUTIONS. PT VERBALIZED UNDERSTANDING. BED IS LOW AND LOCKED. SIDE RAILS X2. BED ALARM IS ON. CALL LIGHT WITH IN EASY REACH. PT DENIES NEEDS AT THIS TIME.
[2019-10-17] MEDS ORDERED: ACETAMINOPHEN 325 MG TAB PO PRN (07:45)
[2019-10-17] MEDS ORDERED: DEXTROSE 50% SYRINGE 50 ML IV PRN (07:45)
[2019-10-17] MEDS ORDERED: ONDANSETRON HCL INJ 2MG/ML 2ML 2 MG/ML VIAL IV PRN (07:45)
--- NOTE | 2019-10-17 08:00 | NUR ---
PT BLOOD SUGAR CHECKED. 102 NOTED.
[2019-10-17] MEDS: INSULIN REGULAR, HUMAN 100 UNIT/1 ML 3ML VIAL SQ SCH ×4 (08:12→20:47)
[2019-10-17] MEDS: TOPIRAMATE 100 MG TAB PO SCH ×2 (09:00→10:00)
--- NOTE | 2019-10-17 09:00 | NUR ---
PT IS NON COMPLIANT WITH FALL PRECAUTIONS. PT REFUSED BED ALARM.
--- NOTE | 2019-10-17 10:00 | NUR ---
EDUCATED PT ABOUT HOSPITAL MEDICATIONS POLICY. PT VERBALIZED UNDERSTANDING.
--- NOTE | 2019-10-17 13:13 | Consultation ---
DATE OF CONSULTATION: Neurology Consultation HISTORY OF PRESENT ILLNESS: This is a 59-year-old male, who comes to my attention for left hemianesthesia. The patient reports that he has had left hemianesthesia now for about a year, it starts out what he describes as a left-sided not headache, but nerve event, left head, then it extends all the way down his body and then he gets completely numb. Denies pain and he denies weakness or paralysis and just numbness and he falls, but he is today here because of recurrent chest pain that he occasionally gets, it is severe sternal chest pain, it happens only when he is lying on the left side of his body when he is trying to sleep at home. The patient is a diabetic, takes insulin. He is on the topiramate for migraines or possibly seizures because he is not sure what exactly is going on. He also takes aspirin, nitroglycerin at home p.r.n. no family history of seizures. He denies any seizures himself noted. He denies any kind of convulsions or concussive head injuries. He does report that he has fallen multiple times without losing consciousness, so he does not think he has seizures. This review of systems includes chest pain and numbness. Denies visual changes, nausea, vomiting, diarrhea, constipation or incontinence issues. REVIEW OF SYSTEMS: A 14-point review of systems is otherwise negative. PHYSICAL EXAMINATION: VITAL SIGNS: Temperature 97.3, heart rate is 58, blood pressure is 122/63. HEENT: His extraocular muscles intact. Face symmetric. Tongue is midline. Speech is clear. Numbness has resolved at this time. There is no sensory anesthesia. There is no left upper motor neuron facial weakness or any facial weakness or any nerve palsy at all. Reflexes are symmetric. ABDOMEN: Soft, nontender. Strength is 5/5 in all four extremities. He has no ataxia or dysdiadochokinesia. EXTREMITIES: Toes are mute. ASSESSMENT AND PLAN: I am seeing Mr. Irwin for this recurrent left hemianesthesia of unclear etiology that has been going on for a while. He states that he does not lose consciousness, but does cause him to fall. I am not sure exactly what the etiology of his symptoms are. We are going to get an MRI of the brain. Evaluate for thalamic dysfunction. We will get an EEG, evaluate for neurophysiological dysfunction. He may need to wear a 72 hour outpatient EEG monitoring system, given that these are transient recurrent events. He has already had topiramate, I do not think I want to change his antiepileptics, but we may look for seizures as well as migraines and leave it at that for now. He might have a periodic paralysis syndrome, although why would affect only half of the body is not clear either. I do think an outpatient workup is where this is going to go if cardiovascular system is cleared. I am going to evaluate for neurophysiological abnormalities transient otherwise including a perfusion study of the brain if the diagnostic studies review here are normal. MD PATRICK CARUSO/MODL /[id number]
--- NOTE | 2019-10-17 13:38 | NUR ---
Date of Service 10/17/2019 Chief complaint: Chest pain History of present illness: 59-year-old gentleman who presented to the emergency department complaining of substernal chest pain of 30 minutes duration. The pain abated quite promptly and patient was feeling comfortable at the time of my visit with no further complaints except of having chronic issues with headache and intermittent numbne ss sensation in the left side of the face. According to the patient approximately 10 years ago he did suffer from head injury. There is no history of focal weakness. No slurred speech. No shortness of breath. No abdominal pain, nausea, vomiting. In view of ongoing chest pain we have proceeded to request cardiac enzymes and cardiology: Consultation was requested. Past medical history: Significant for diabetes mellitus, migraine, GERD and hyperlipidemia. Pas medical t history: Cholecysctectomy, Back Surgery Other Knee and lumbar surgery Review of Systems Constitutional: Reports no symptoms EENTM: Reports no symptoms Cardiovascular: Reports as per HPI, Reports chest pain Respiratory: Reports no symptoms Gastrointestinal: Reports no symptoms Genitourinary: Reports no symptoms Musculoskeletal: Reports no symptoms Integumentary: Reports no symptoms Neurological: Reports no symptoms Psychological: Reports no symptoms Endocrine: Reports no symptoms Hematological/Lymphatic: Reports no symptoms Physical exam Consstitutional: He is oriented to person, place, and time. He appears well-developed. HEENT: Head: Normocephalic and atraumatic. PERRLA. Cardiovascular: Regular rhythm, no murmurs, no rubs, no gallops. Pulmonary/Chest: Clear bilaterally, no rales, no rhonchi. Abdominal: Soft, nontender, bowel sounds positive and normal. No distention, no guarding, no rebound. Musculoskeletal: Normal range of motion. Extremities: No edema, no clubbing. Neurological: He is alert and oriented to person, place, and time. Skin: Skin is warm and dry. Psychiatric: He has a normal mood and affect. Procedures 12 Lead ECG Interpretation ECG Interpretation : ECG: ECG 1 Medical Records Analyst: Interpreted by ED physician Rhythm: sinus rhythm Rate: normal QRS axis: normal ST segments normal: Yes T waves normal: Yes Clinical Impression: normal ECG Labs noted WBC 9.32 Hemoglobin 12.3 EXAMINATION: CHEST SINGLE (PORTABLE) IMPRESSION: No acute thoracic abnormality. Assesment Chest pain etilog yundetermined Non specific numbness Diabetes melitus GERD HYPERLIPIDEMIA Plan: Consult cardiology Glycemic control Reconcile home medications
--- NOTE | 2019-10-17 14:42 | Diagnostic Imaging Report ---
History: Syncope, hemianesthesia Comparison studies: Head CT 06/21/2019 and 09/08/2015. Technique: Axial DWI, axial and coronal T2 FLAIR, axial T1 FLAIR, axial T2*GRE, and sagittal and axial T2. IV contrast: None. Findings: Several pulse sequences are somewhat limited artifacts related to patient motion. In spite of limitations: Scalp: No abnormal signal. No masses. Bone marrow: Normal in signal intensity. Brain sulci: Appropriate for age. Ventricles: Normal in size. No hydrocephalus. Extra axial spaces: No mass, no fluid collection. Parenchyma: No mass, hemorrhage or acute ischemia. A few scattered small T2 FLAIR hyperintense foci in the supratentorial white matter are nonspecific but may be mild chronic microvascular ischemic changes. Suprasellar region: No abnormalities. Craniocervical junction: Patent foramen magnum. No Chiari one malformation. Vessels: Normal flow-voids in the arteries and sinuses. IMPRESSION: 1. No acute intracranial abnormalities. 2. Mild supratentorial chronic microvascular ischemic changes. Signed by: Dr. Darshan Rayo M.D. on 10/17/2019 2:39 PM
--- NOTE | 2019-10-17 17:09 | NUR ---
DR. Kriss REYES NOTIFIED REGARDING NEW CONSULT.
[2019-10-17 17:11] LABS: CREATINE KINASE MB 11.9 ng/mL (0-5.0)
--- NOTE | 2019-10-17 19:00 | NUR ---
BEDSIDE SHIFT REPORT GIVEN TO THE WATER AND SEWER SYSTEMS SUPERINTENDENT RN. PT DENIED FURTHER NEEDS.
[2019-10-17] MEDS: SIMVASTATIN 20 MG TAB PO SCH (20:55)
[2019-10-18] VITALS (7 sets, daily range): BP systolic 102–117; BP diastolic 53–70
[2019-10-18] MEDS: INSULIN REGULAR, HUMAN 100 UNIT/1 ML 3ML VIAL SQ SCH ×4 (07:30→21:00)
--- NOTE | 2019-10-18 07:40 | NUR ---
ASSUMED CARE. AAOX3. ACYANOTIC. RESTING IN BED. NO DISTRESS NOTED. CALL LIGHT IN REACH. SIDE RAILS UP X2. BED LOW AND LOCKED.
--- NOTE | 2019-10-18 07:49 | NUR ---
REPORT GIVEN TO DAYSHIFT NURSE. ALERT AND ORIENTED . NO SIGNS IV INFILTRATION. BED LOCKED AND IN LOW POSITION. CALL LIGHT WITHIN REACH. BED ALARM ACTIVATED.
[2019-10-18] MEDS: TOPIRAMATE 100 MG TAB PO SCH (08:58)
--- NOTE | 2019-10-18 12:09 | NUR ---
Progress note patient stable no acute issues overnight 96.0 66 110/55 HEENT: His extraocular muscles intact. ABDOMEN: Soft, nontender. EXTREMITIES: Toes are mute. Neuro: Face symmetric. Tongue is midline. Speech is clear. Numbness has resolved at this time. There is no sensory anesthesia. There is no left upper motor neuron facial weakness or any facial weakness or any nerve palsy at all. Reflexes are symmetric. Strength is 5/5 in all four extremities. He has no ataxia or dysdiadochokinesia. ASSESSMENT AND PLAN: I am seeing Mr. Irwin for this recurrent left hemianesthesia of unclear etiology that has been going on for a while. He states that he does not lose consciousness, but does cause him to fall. I am not sure exactly what the etiology of his symptoms are. MRI reasurring EEG orderedm pending He has already had topiramate, I do not think I want to change his antiepileptics, but we may look for seizures as well as migraines and leave it at that for now. He might have a periodic paralysis syndrome, although why would affect only half of the body is not clear either. I do think an outpatient workup is where this is going to go if cardiovascular system is cleared. I am going to evaluate for neurophysiological abnormalities transient otherwise including a perfusion study of the brain if the diagnostic studies review here are normal.
--- NOTE | 2019-10-18 16:07 | NUR ---
The patient was seen evaluated by neurology. No recommendations given pertaining changing antiepileptic medications. There is no history of loss of consciousness. However he falls. EEG was ordered. Per neurology patient might have periodic paralysis syndrome. Presently on topiramate. Neurophysiologic abnormalities evaluation on board per neuro. Perfusion brain studies is been advised. We proceeded to request GI evaluation in view of some problems with swallowing. We requested cardiology to evaluate patient. Further work-up on outpatient basis. The patient vital signs are remained stable.
--- NOTE | 2019-10-18 19:25 | Consultation ---
DATE OF CONSULTATION: 10/18/2019 Cardiovascular Consultation HISTORY OF PRESENT ILLNESS: The patient is a 59-year-old man who came to the emergency department due to substernal chest pain that woke him up and resolved and lasted about 1 hour. The intensity of the chest pain was 7/10. The patient has been experiencing similar symptoms usually associated with food. He describes painful swallowing when he eats solids, not liquids followed by painful sensation in the retrosternal area because food seems to get stuck there. He usually drinks water and walks around to help food go down. The symptoms are followed by reflux type sensation. The patient has been experiencing these symptoms for the last week. He states he experienced the same symptoms as an inpatient yesterday when he ate meal in the hospital. The patient also gives a history of similar symptoms in 2018. He underwent upper endoscopy and the doctor "opened up his throat." He was told that these symptoms would likely recur and he would need procedure again. The patient denies exertional chest pain, dyspnea, palpitations, dizziness, syncope, cough, fever, chills, or bleeding. OTHER MEDICAL HISTORY: 1. Left-sided head and eye numbness accompanied by throbbing pain and associated with left arm and left leg numbness. 2. Diabetes type 2. 3. Hyperlipidemia. 4. Thyroid nodule biopsy in 2018 and 2019. The patient denies any history of coronary artery disease, congestive heart failure. He has history of TIA in the 1980s. PAST SURGICAL HISTORY: 1. Lumbar surgery. 2. Right knee surgery. 3. Cholecystectomy. FAMILY HISTORY: There is no family history of premature coronary artery disease. The patient's mother was diagnosed with diabetes and underwent coronary artery bypass grafting surgery in her 70s. She is still alive in her 80s. SOCIAL HISTORY: The patient is a former smoker of one pack per day for 20 years and he stopped five years ago. He denies any alcohol or other drug use. ALLERGIES: NO KNOWN ALLERGIES. PHYSICAL EXAMINATION: VITAL SIGNS: His blood pressure was 117/61 mmHg, heart rate 54 beats per minute, temperature 97.3, and pulse oximetry showed 97% on room air. HEAD AND NECK: Shows normocephalic and atraumatic head. Pupils are equal and reactive to light. Anicteric conjunctivae. Neck shows no JVD. Fullness in the throat maybe an enlarged thyroid. His carotid pulses are 2+ bilaterally without bruits. LUNGS: Clear to auscultation. CARDIAC: Regular rate and rhythm. Normal S1, S2. No murmurs heard. ABDOMEN: Soft, nontender. Bowel sounds present. EXTREMITIES: The lower extremities show varicosities and no leg edema. NEUROLOGIC: The patient is alert, awake, oriented x3 and without detectable neurological deficits. The electrocardiogram shows normal sinus rhythm without significant abnormalities. The echocardiogram shows normal ventricular size and function. Left ventricle ejection fraction 60% to 64%. Wall motion is normal. There are no significant valvular abnormalities. LABORATORY DATA: Shows a white blood cell count of 9.32, hemoglobin of 2.3, hematocrit of 39.7, platelet count 241,000. His lipid profile shows a total cholesterol of 111. The LDL cholesterol 51, HDL 28, and triglycerides 158. Coronavirus PCR is still pending. ASSESSMENT AND PLAN: 1. Retrosternal chest pain, most likely due to esophageal disorder such as esophageal strictures. The patient was seen today by Dr. Stephane Ball who will schedule upper endoscopy as an outpatient. There is no contraindication to proposed procedure from the cardiovascular perspective. The patient may be discharged from cardiovascular perspective. 2. Sinus bradycardia. The patient was taking propranolol and this medication was stopped. 3. Complains of left-sided head and eye numbness associated with throbbing pain and left arm and left leg numbness. The patient was seen by a neurologist while as an inpatient. The above was discussed with the patient's doctor, Dr. Gibson. MD KING Eastman/MODL /[id number]
[2019-10-18] MEDS: SIMVASTATIN 20 MG TAB PO SCH (21:17)
--- NOTE | 2019-10-18 21:50 | NUR ---
AWAITING CALLBACK FROM MD CARDENAS
--- NOTE | 2019-10-18 22:35 | NUR ---
SPOKE TO MD CARDENAS REGARDING PATIENT QUESTIONS ABOUT HOME MEDS.
--- NOTE | 2019-10-18 23:03 | NUR ---
PATIENT D/C HOME. EDUCATION ON D/C INSTRUCTIONS PROVIDED. VERBALIZES UNDERSTANDING. IV D/C TO R HAND CATHETER TIP INTACT. CDI DRESSING APPLIED. ALERT AND ORIENTED. ESCORTED BY PCT IN WHEELCHAIR TO PRIVATE VEHICLE. ALL PERSONAL ITEMS AND D/C PACKET IN HAND.
[2019-10-19] VITALS: BP 140/50
--- NOTE | 2019-10-19 12:06 | Electroencephalogram ---
DATE OF STUDY: REQUESTING PHYSICIAN: PROCEDURE: 30 minutes EEG. INDICATIONS: EEG is being done for hemianesthesia. EEG DATA: This is a 10-20 international electrode placement EEG, read in bipolar and transverse montages, using a 21-channel electrode placement system. Posterior dominant rhythm was 9 hertz less than 10 microvolts. No sleep test during the study. No focal dysfunction was evidence during the study. EEG INTERPRETATION: This EEG is within normal limits. No underlying evidence of epileptic descriptions during this recording. ADRIAN VIVAS MD RR/MODL /[id number]
== END 2019-10-18 23:03 | disposition home or self-care (01) ==
LOC: ER 23:56 → ERHOLD 10-17 01:05 → MED/SURG 10-17 02:20
PROVIDERS: ADMIT Internal Medicine; ATTEND Internal Medicine
DX: R07.89 Other chest pain (principal); R20.0 Anesthesia of skin; E11.9 Type 2 diabetes mellitus without complications; G43.909 Migraine, unspecified, not intractable, without status migrainosus; K21.9 Gastro-esophageal reflux disease without esophagitis; E78.5 Hyperlipidemia, unspecified; Z90.49 Acquired absence of other specified parts of digestive tract; R00.1 Bradycardia, unspecified
CPT/HCPCS: 36415 ×2; 70551; 71045; 80053; 80061; 80307; 82550; 82553; 82948 ×2; 83690; 84146; 84484; 85025; 93005 ×2; 93306; 95812; 99284; G0378 ×2; U0002

== ENCOUNTER → 2020-08-21 | Day surgery (SDC) | payer OTHER ==
[~2020-08-21] MED LIST changes: +CRESTOR10 MG PO; +IBUPROFEN200 MG PO; +IBUPROFEN400 MG PO; +PANTOPRAZOLE SO40 MG PO; +PROPRANOLOL HCL10 MG PO; +TOPIRAMATE100 MG PO
== END | disposition home or self-care (01) ==
LOC: OR 06:16
PROVIDERS: ATTEND Internal Medicine Gastroenterology
DX: Z01.810 Encounter for preprocedural cardiovascular examination (principal); Z01.812 Encounter for preprocedural laboratory examination; Z20.822 Contact with and (suspected) exposure to COVID-19; Z53.8 Procedure and treatment not carried out for other reasons; I48.91 Unspecified atrial fibrillation
CPT/HCPCS: 36415; 82948; 93005; U0002

== ENCOUNTER → 2020-12-18 | Day surgery (SDC) | payer OTHER ==
[~2020-12-18] MED LIST changes: +ELIQUIS5 MG PO; +HYOSCYAMINE SULFATE 0.5 MG/ML INJ ONE
[2020-12-18 14:20] VITALS: BP 133/63
== END | disposition home or self-care (01) ==
LOC: ENDO 10:21
PROVIDERS: ATTEND Internal Medicine Gastroenterology
DX: K22.2 Esophageal obstruction (principal); K44.9 Diaphragmatic hernia without obstruction or gangrene; K64.8 Other hemorrhoids; D12.4 Benign neoplasm of descending colon; K29.70 Gastritis, unspecified, without bleeding; K29.80 Duodenitis without bleeding; K22.10 Ulcer of esophagus without bleeding; K21.9 Gastro-esophageal reflux disease without esophagitis; I48.91 Unspecified atrial fibrillation; Z86.010 Personal history of colon polyps; R03.0 Elevated blood-pressure reading, without diagnosis of hypertension; Z68.28 Body mass index [BMI] 28.0-28.9, adult; R73.03 Prediabetes; Z90.49 Acquired absence of other specified parts of digestive tract; J45.909 Unspecified asthma, uncomplicated; Z01.810 Encounter for preprocedural cardiovascular examination; Z01.812 Encounter for preprocedural laboratory examination; Z20.822 Contact with and (suspected) exposure to COVID-19
CPT/HCPCS: 43450; 45385; 93005; J1980; U0002

== ENCOUNTER 2021-07-29 00:16 | Observation (INO) | payer OTHER ==
[~2021-07-29] VITALS: Ht 170.2 cm; Wt 81.6 kg
[~2021-07-29 00:16] MED LIST changes: -HYOSCYAMINE SULFATE 0.5 MG/ML INJ ONE
[2021-07-29] MEDS ORDERED: ONDANSETRON HCL INJ 2MG/ML 2ML 2 MG/ML VIAL IV STA (00:36)
[2021-07-29] MEDS ORDERED: Morphine 4mg Syringe 4 MG/ML INJ IV ONE (00:45)
[2021-07-29 00:53] LABS: BASOPHILS # (AUTO) 0.1 (0.0-0.1); BASOPHILS % 0.7 % (0.0-1.0); EOSINOPHILS # (AUTO) 0.2 (0.0-0.4); EOSINOPHILS % 2.7 % (0.0-6.0); HEMATOCRIT 41.7 % (38.2-49.6); HEMOGLOBIN 13.1 g/dL (14.0-18.0); LYMPHOCYTES # (AUTO) 3.6 (1.0-3.2); LYMPHOCYTES % 41.7 % (18.0-39.1); MEAN CORPUSCULAR HEMOGLOBIN 27.5 pg (28-32); MEAN CORPUSCULAR HGB CONC 31.4 g/dL (31-35); MEAN CORPUSCULAR VOLUME 87.4 fL (81-99); MONOCYTES # (AUTO) 0.8 (0.2-0.8); NEUTROPHILS # (AUTO) 3.9 (2.1-6.9); NEUTROPHILS % 45.7 % (38.7-80.0); PLATELET COUNT 268 x10e3/uL (140-360); RED BLOOD COUNT 4.77 x10e6/uL (4.3-5.7); RED CELL DISTRIBUTION WIDTH 15.2 % (11.7-14.4)
[2021-07-29 01:12] LABS: ALBUMIN 3.4 g/dL (3.5-5.0); ALBUMIN/GLOBULIN RATIO 0.8 (0.8-2.0); ANION GAP 13.7 mmol/L (8-16); CALCIUM 9.1 mg/dL (8.4-10.2); CREATININE, SERUM 0.8 mg/dL (0.72-1.25); POTASSIUM 3.7 mmol/L (3.5-5.1)
[2021-07-29 01:20] LABS: CREATINE KINASE MB 7.9 ng/mL (0-5.0)
[2021-07-29] MEDS ORDERED: ENOXAPARIN SODIUM INJ 100 MG/ML SYR SC STA (01:32)
[2021-07-29] MEDS ORDERED: ASPIRIN 325 MG TAB PO STA (01:33)
[2021-07-29] MEDS ORDERED: ASPIRIN81 MG PO (01:56)
[2021-07-29] MEDS ORDERED: IRON325 M1 PO (01:56)
[2021-07-29 03:06] LABS: CREATINE KINASE MB 7.9 ng/mL (0-5.0)
[2021-07-29] MEDS ORDERED: SODIUM CHLORIDE 0.9% 1000ML 1,000 ML ONE ×2 (03:06→15:21)
[2021-07-29] MEDS ORDERED: SODIUM CHLORIDE 0.9% 1000ML 1,000 ML IV ONE (03:30)
[2021-07-29 04:30] VITALS: BP 119/60
[2021-07-29] MEDS ORDERED: ONDANSETRON HCL INJ 2MG/ML 2ML 2 MG/ML VIAL IV PRN (04:30)
[2021-07-29] MEDS ORDERED: Morphine 4mg Syringe 4 MG/ML INJ IV PRN (04:45)
[2021-07-29] MEDS ORDERED: PNEUMOCOCCAL VACCINE POLYVALENT 23 MCG/0.5 ML VIAL IM SCH (04:51)
[2021-07-29 04:55] VITALS: BP 119/60
[2021-07-29] MEDS: SODIUM CHLORIDE 0.9% 1000ML 1,000 ML IV SCH (05:23)
[2021-07-29 08:00] VITALS: BP 124/63
[2021-07-29] MEDS: PANTOPRAZOLE SOD 40 MG TABEC PO SCH (08:00)
[2021-07-29] MEDS: METFORMIN HCL 500 MG TAB PO SCH ×2 (08:00→16:15)
[2021-07-29 10:55] LABS: CREATINE KINASE MB 7.2 ng/mL (0-5.0)
[2021-07-29] MEDS ORDERED: METOPROLOL TARTRATE 25 MG TAB PO ONE (12:30)
[2021-07-29] MEDS ORDERED: ASPIRIN 81 MG CHEW TAB PO ONE (12:30)
[2021-07-29] MEDS ORDERED: LIDOCAINE HCL 2% LOCAL 20 ML VIAL ONE (15:20)
[2021-07-29] MEDS ORDERED: HEPARIN SOD/SOD CHLORIDE 2,000 ML ONE (15:20)
[2021-07-29] MEDS ORDERED: HEPARIN SOD (PORCINE) 1000 UNIT/ML 30ML ONE (15:20)
[2021-07-29] MEDS ORDERED: IOPAMIDOL 370 MG/ML 100 ML INFUS..BTL INJ ONE (15:20)
[2021-07-29] MEDS ORDERED: NITROGLYCERIN/D5W 200 MCG/ML 250 ML ONE (15:21)
[2021-07-29] MEDS ORDERED: MIDAZOLAM HCL 2 MG/2 ML VIAL ONE (15:21)
[2021-07-29] MEDS ORDERED: FENTANYL CITRATE/PF 100MCG/2 ML INJ ONE (15:21)
[2021-07-29 20:00] VITALS: BP 124/50
[2021-07-29 21:00] VITALS: BP 124/50
[2021-07-29] MEDS ORDERED: ATORVASTATIN 10 MG TAB PO SCH (21:00)
[2021-07-30] VITALS: BP 136/59
[2021-07-30 04:00] VITALS: BP 127/59
[2021-07-30] MEDS: SODIUM CHLORIDE 0.9% 1000ML 1,000 ML IV SCH (04:07)
[2021-07-30 06:30] LABS: BASOPHILS % 0.7 % (0.0-1.0); EOSINOPHILS # (AUTO) 0.1 (0.0-0.4); EOSINOPHILS % 2.4 % (0.0-6.0); HEMATOCRIT 40.5 % (38.2-49.6); HEMOGLOBIN 12.4 g/dL (14.0-18.0); LYMPHOCYTES % 34.2 % (18.0-39.1); MEAN CORPUSCULAR HEMOGLOBIN 27.1 pg (28-32); MEAN CORPUSCULAR HGB CONC 30.6 g/dL (31-35); MEAN CORPUSCULAR VOLUME 88.6 fL (81-99); MONOCYTES # (AUTO) 0.5 (0.2-0.8); MONOCYTES % 8.2 % (4.4-11.3); NEUTROPHILS # (AUTO) 3.2 (2.1-6.9); NEUTROPHILS % 54.3 % (38.7-80.0); PLATELET COUNT 251 x10e3/uL (140-360); RED BLOOD COUNT 4.57 x10e6/uL (4.3-5.7); RED CELL DISTRIBUTION WIDTH 15.2 % (11.7-14.4)
[2021-07-30 07:04] LABS: ALBUMIN 3.3 g/dL (3.5-5.0); ALBUMIN/GLOBULIN RATIO 0.9 (0.8-2.0); CALCIUM 8.5 mg/dL (8.4-10.2); CREATININE, SERUM 0.68 mg/dL (0.72-1.25)
[2021-07-30 08:30] VITALS: BP 121/69
[2021-07-30 09:00] VITALS: BP 121/69
[2021-07-30] MEDS ORDERED: ASPIRIN 81 MG ENTERIC COATED PO SCH (09:00)
[2021-07-30] MEDS ORDERED: METOPROLOL TARTRATE 25 MG TAB PO SCH (09:00)
[2021-07-30] MEDS: PANTOPRAZOLE SOD 40 MG TABEC PO SCH (09:28)
[2021-07-30] MEDS: METFORMIN HCL 500 MG TAB PO SCH (09:28)
[2021-07-30] MEDS ORDERED: ELIQUIS5 MG PO (10:42)
[2021-07-30] MEDS ORDERED: LOPRESSOR25 MG PO (10:42)
[2021-07-30] MEDS ORDERED: PNEUMOCOCCAL VACCINE POLYVALENT 23 MCG/0.5 ML VIAL IM ONE (11:30)
== END 2021-07-30 12:00 | disposition home or self-care (01) ==
LOC: ER 00:25 → ERHOLD 01:39 → INTOOBSV 01:39 → MED/SURG2 04:27
PROVIDERS: ADMIT Internal Medicine; ATTEND Internal Medicine
DX: I25.10 Atherosclerotic heart disease of native coronary artery without angina pectoris (principal); I10 Essential (primary) hypertension; E11.65 Type 2 diabetes mellitus with hyperglycemia; K21.9 Gastro-esophageal reflux disease without esophagitis; E78.5 Hyperlipidemia, unspecified; E66.9 Obesity, unspecified; I48.0 Paroxysmal atrial fibrillation; E04.1 Nontoxic single thyroid nodule; D64.9 Anemia, unspecified; Z68.28 Body mass index [BMI] 28.0-28.9, adult; Z20.822 Contact with and (suspected) exposure to COVID-19; Z90.49 Acquired absence of other specified parts of digestive tract; Z86.73 Personal history of transient ischemic attack (TIA), and cerebral infarction without residual deficits; Z79.01 Long term (current) use of anticoagulants; Z83.3 Family history of diabetes mellitus; Z82.49 Family history of ischemic heart disease and other diseases of the circulatory system; Z87.891 Personal history of nicotine dependence; Z23 Encounter for immunization
CPT/HCPCS: 36415 ×2; 71045; 76937; 80053 ×2; 82550; 82553; 82948 ×2; 83690; 83880; 84484; 85025 ×2; 85379; 90732; 93005; 93306; 93454; 94799; 96361; 99251; 99284; C1887; C9113; G0378 ×2; J1644; J1650; J2001; J2250; J2270; J2405; J3010; J7030 ×2; Q9967; S0164 ×2; U0002; 96360; 99152; 99153; G0009

== ENCOUNTER 2021-11-24 13:44 | Emergency (ER) | payer OTHER ==
[~2021-11-24] VITALS: Ht 170.2 cm; Wt 79.8 kg
[~2021-11-24 13:44] MED LIST changes: +ASPIRIN81 MG PO; +IRON325 M1 PO; +LOPRESSOR25 MG PO
[2021-11-24] MEDS ORDERED: SODIUM CHLORIDE 0.9% 1000ML 1,000 ML IV STA (13:58)
[2021-11-24 14:10] LABS: BASOPHILS % 0.4 % (0.0-1.0); EOSINOPHILS # (AUTO) 0.2 (0.0-0.4); EOSINOPHILS % 1.7 % (0.0-6.0); HEMATOCRIT 39.9 % (38.2-49.6); HEMOGLOBIN 12.3 g/dL (14.0-18.0); LYMPHOCYTES # (AUTO) 2.8 (1.0-3.2); LYMPHOCYTES % 30.6 % (18.0-39.1); MEAN CORPUSCULAR HEMOGLOBIN 27.1 pg (28-32); MEAN CORPUSCULAR HGB CONC 30.8 g/dL (31-35); MEAN CORPUSCULAR VOLUME 87.9 fL (81-99); MONOCYTES # (AUTO) 0.8 (0.2-0.8); MONOCYTES % 8.8 % (4.4-11.3); NEUTROPHILS # (AUTO) 5.4 (2.1-6.9); NEUTROPHILS % 58.3 % (38.7-80.0); PLATELET COUNT 262 x10e3/uL (140-360); RED BLOOD COUNT 4.54 x10e6/uL (4.3-5.7); RED CELL DISTRIBUTION WIDTH 15.4 % (11.7-14.4)
[2021-11-24 14:16] LABS: CLARITY,URINE SL CLOUDY (CLEAR); COLOR,URINE AMBER (YELLOW); KETONES,URINE TRACE (NEGATIVE); LEUKOCYTE ESTERASE ,URINE NEGATIVE (NEGATIVE); NITRITE,URINE NEGATIVE (NEGATIVE); PROTEIN,URINE DIPSTICK >=300 (NEGATIVE); URINE UROBILINOGEN 1 mg/dL (0.2 - 1)
[2021-11-24 14:29] LABS: BACTERIA,URINE RARE /HPF; MUCUS,URINE MODERATE (RARE)
[2021-11-24 14:30] LABS: ALBUMIN 3.9 g/dL (3.5-5.0); ALBUMIN/GLOBULIN RATIO 0.9 (0.8-2.0); CALCIUM 9.5 mg/dL (8.4-10.2); CREATININE, SERUM 0.68 mg/dL (0.72-1.25)
== END 2021-11-24 17:06 | disposition home or self-care (01) ==
LOC: ER 13:59
DX: R10.11 Right upper quadrant pain (principal); S39.011A Strain of muscle, fascia and tendon of abdomen, initial encounter; X50.1XXA Overexertion from prolonged static or awkward postures, initial encounter; Y93.H2 Activity, gardening and landscaping; Y92.89 Other specified places as the place of occurrence of the external cause; E11.9 Type 2 diabetes mellitus without complications; E78.5 Hyperlipidemia, unspecified; K21.9 Gastro-esophageal reflux disease without esophagitis; I48.91 Unspecified atrial fibrillation; F41.9 Anxiety disorder, unspecified; I25.2 Old myocardial infarction
CPT/HCPCS: 36415; 74177; 80053; 81001; 83690; 85025; 99284; J7030

== ENCOUNTER → 2023-07-24 | Outpatient (REF) | payer OTHER ==
[~2023-07-24] MED LIST changes: +ATORVASTATIN CA20 MG PO; +LACTULOSE20 GM/30 M PO; +LIPITOR10 MG PO; +ONDANSETRON ODT4 MG PO; +XARELTO20 MG PO
== END ==
LOC: US 10:49
PROVIDERS: ATTEND Surgery
DX: E07.9 Disorder of thyroid, unspecified (principal)
CPT/HCPCS: 10005; 88172; 88173

== ENCOUNTER 2024-01-17 23:30 | Observation (INO) | payer OTHER ==
[~2024-01-17] VITALS: Ht 170.2 cm; Wt 78.0 kg
[2024-01-17 23:35] VITALS: TEMP 97.7
[2024-01-17] MEDS: KETOROLAC TROMETHAMINE 30 MG/ML VIAL IV STA (23:56)
[2024-01-18] VITALS (9 sets, daily range): BP systolic 117–137; BP diastolic 41–71; PULSE 60–66; RESP 16–18; TEMP 96.7–98; O2SAT 97–100
[2024-01-18] LABS: BASOPHILS # (AUTO) 0.1 (0.0-0.1); BASOPHILS % 0.5 % (0.0-1.0); EOSINOPHILS # (AUTO) 0.2 (0.0-0.4); EOSINOPHILS % 2.1 % (0.0-6.0); HEMATOCRIT 42.7 % (38.2-49.6); HEMOGLOBIN 13.4 g/dL (14.0-18.0); LYMPHOCYTES # (AUTO) 4.7 (1.0-3.2); LYMPHOCYTES % 40.7 % (18.0-39.1); MEAN CORPUSCULAR HEMOGLOBIN 28.9 pg (28-32); MEAN CORPUSCULAR HGB CONC 31.4 g/dL (31-35); MONOCYTES % 8.6 % (4.4-11.3); NEUTROPHILS # (AUTO) 5.5 (2.1-6.9); NEUTROPHILS % 47.8 % (38.7-80.0); PLATELET COUNT 264 x10e3/uL (140-360); RED BLOOD COUNT 4.64 x10e6/uL (4.3-5.7); RED CELL DISTRIBUTION WIDTH 14.7 % (11.7-14.4)
[2024-01-18 00:11] LABS: ALANINE AMINOTRANSFERASE 27 IU/L (0-55); ALKALINE PHOSPHATASE 66 IU/L (40-150); ANION GAP 17.7 mmol/L (8-16); BILIRUBIN,TOTAL 0.4 mg/dL (0.2-1.2); BLOOD UREA NITROGEN 19 mg/dL (7-26); BUN/CREATININE RATIO 20 (6-25); CALCIUM 9.8 mg/dL (8.4-10.2); CARBON DIOXIDE 21 mmol/L (22-29); CHLORIDE 105 mmol/L (98-107); CREATINE KINASE 202 IU/L (30-200); CREATININE, SERUM 0.94 mg/dL (0.72-1.25); EST GLOMERULAR FILTRATION RATE 92 ML/MIN (>=60); GLUCOSE 112 mg/dL (74-118); POTASSIUM 3.7 mmol/L (3.5-5.1); SODIUM 140 mmol/L (136-145); TOTAL PROTEIN 8.2 g/dL (6.5-8.1)
[2024-01-18 00:20] LABS: TROPONIN I < 0.05 ng/mL (0.0-0.40)
[2024-01-18] MEDS ORDERED: ONDANSETRON HCL INJ 2MG/ML 2ML 2 MG/ML VIAL IV PRN (00:45)
[2024-01-18] MEDS ORDERED: Morphine 4mg INJECTION 4 MG/ML INJ IV PRN (00:45)
[2024-01-18] MEDS ORDERED: METFORMIN HCL500 MG PO (02:21)
[2024-01-18] MEDS ORDERED: LIPITOR20 MG PO (02:21)
[2024-01-18] MEDS: SODIUM CHLORIDE 0.9% 1000ML 1,000 ML IV SCH (02:32)
[2024-01-18 08:53] LABS: CREATINE KINASE 131 IU/L (30-200)
[2024-01-18 09:13] LABS: TROPONIN I < 0.05 ng/mL (0.0-0.40)
[2024-01-18] MEDS: ASPIRIN 81 MG ENTERIC COATED PO SCH (11:11)
[2024-01-18] MEDS: RIVAROXABAN 20 MG TABLET PO SCH (17:19)
[2024-01-18 17:27] LABS: TROPONIN I 0.041 ng/mL (0-0.300)
[2024-01-18] MEDS: ATORVASTATIN 10 MG TAB PO SCH (21:00)
[2024-01-19] VITALS: BP 126/77; PULSE 69; RESP 18; TEMP 97.9; O2SAT 98
[2024-01-19] MEDS ORDERED: ZESTRIL40 MG PO (16:18)
== END 2024-01-19 17:33 | disposition home or self-care (01) ==
LOC: ER 23:38 → ERHOLD 01-18 00:44 → MED/SURG2 01-18 02:14
PROVIDERS: ADMIT Internal Medicine; ATTEND Internal Medicine
DX: R07.89 Other chest pain (principal); I48.0 Paroxysmal atrial fibrillation; Z79.01 Long term (current) use of anticoagulants; I49.3 Ventricular premature depolarization; I34.0 Nonrheumatic mitral (valve) insufficiency; I10 Essential (primary) hypertension; E78.5 Hyperlipidemia, unspecified; E11.9 Type 2 diabetes mellitus without complications; Z79.84 Long term (current) use of oral hypoglycemic drugs; K21.9 Gastro-esophageal reflux disease without esophagitis; I87.2 Venous insufficiency (chronic) (peripheral); I65.29 Occlusion and stenosis of unspecified carotid artery; Z86.73 Personal history of transient ischemic attack (TIA), and cerebral infarction without residual deficits; Z79.899 Other long term (current) drug therapy; Z79.82 Long term (current) use of aspirin
CPT/HCPCS: 36415 ×2; 71045; 80053; 82550 ×2; 82948; 83690; 83880; 84484 ×2; 85025; 93005; 93306; 99284; G0378 ×2; J1885; J7030

== ENCOUNTER 2024-02-18 10:30 | Observation (INO) | payer OTHER ==
[~2024-02-18] VITALS: Ht 170.2 cm; Wt 88.5 kg
[2024-02-18] VITALS (9 sets, daily range): BP systolic 136–137; BP diastolic 56–57; PULSE 50–109; RESP 18–20; TEMP 97.8–98.8; O2SAT 100
[~2024-02-18 10:30] MED LIST changes: +LIPITOR20 MG PO; +METFORMIN HCL500 MG PO; +ZESTRIL40 MG PO
[2024-02-18 10:57] LABS: BASOPHILS # (AUTO) 0.1 (0.0-0.1); BASOPHILS % 0.9 % (0.0-1.0); EOSINOPHILS # (AUTO) 0.3 (0.0-0.4); HEMATOCRIT 38.9 % (38.2-49.6); LYMPHOCYTES # (AUTO) 2.8 (1.0-3.2); LYMPHOCYTES % 36.3 % (18.0-39.1); MEAN CORPUSCULAR HEMOGLOBIN 28.4 pg (28-32); MEAN CORPUSCULAR HGB CONC 30.8 g/dL (31-35); MEAN CORPUSCULAR VOLUME 92.2 fL (81-99); MONOCYTES # (AUTO) 0.7 (0.2-0.8); MONOCYTES % 8.5 % (4.4-11.3); NEUTROPHILS # (AUTO) 3.9 (2.1-6.9); NEUTROPHILS % 49.5 % (38.7-80.0); PLATELET COUNT 252 x10e3/uL (140-360); RED BLOOD COUNT 4.22 x10e6/uL (4.3-5.7); RED CELL DISTRIBUTION WIDTH 14.5 % (11.7-14.4); WHITE BLOOD COUNT 7.77 x10e3/uL (4.8-10.8)
[2024-02-18] MEDS: ASPIRIN 81 MG CHEW TAB PO ONE (11:01)
[2024-02-18 11:21] LABS: ALBUMIN 3.6 g/dL (3.5-5.0); ANION GAP 15.7 mmol/L (8-16); BILIRUBIN,TOTAL 0.4 mg/dL (0.2-1.2); CALCIUM 9.7 mg/dL (8.4-10.2); CREATININE, SERUM 0.77 mg/dL (0.72-1.25); POTASSIUM 3.7 mmol/L (3.5-5.1); TOTAL PROTEIN 7.3 g/dL (6.5-8.1)
[2024-02-18 11:27] LABS: TROPONIN I 0.035 ng/mL (0-0.300)
[2024-02-18] MEDS: NITROGLYCERIN 0.1MG/HR PATCH TOP SCH (11:58)
[2024-02-18 13:17] LABS: TROPONIN I 0.03 ng/mL (0-0.300)
[2024-02-18] MEDS: ATORVASTATIN 20 MG TAB PO SCH (21:11)
[2024-02-18] MEDS ORDERED: IOPAMIDOL 370 MG/ML 100 ML INFUS..BTL INJ ONE (21:42)
[2024-02-18] MEDS ORDERED: SODIUM CHLORIDE 0.9% 100 ML ONE (21:42)
[2024-02-19] VITALS (11 sets, daily range): BP systolic 102–153; BP diastolic 45–71; PULSE 55–61; RESP 18–19; TEMP 97.5–98.5; O2SAT 97–100
[2024-02-19 05:45] LABS: BASOPHILS # (AUTO) 0.1 (0.0-0.1); BASOPHILS % 0.7 % (0.0-1.0); EOSINOPHILS # (AUTO) 0.3 (0.0-0.4); EOSINOPHILS % 3.7 % (0.0-6.0); HEMATOCRIT 34.8 % (38.2-49.6); HEMOGLOBIN 11.2 g/dL (14.0-18.0); LYMPHOCYTES # (AUTO) 2.8 (1.0-3.2); LYMPHOCYTES % 37.7 % (18.0-39.1); MEAN CORPUSCULAR HEMOGLOBIN 28.7 pg (28-32); MEAN CORPUSCULAR HGB CONC 32.2 g/dL (31-35); MEAN CORPUSCULAR VOLUME 89.2 fL (81-99); MONOCYTES # (AUTO) 0.6 (0.2-0.8); MONOCYTES % 8.2 % (4.4-11.3); NEUTROPHILS # (AUTO) 3.6 (2.1-6.9); PLATELET COUNT 242 x10e3/uL (140-360); RED CELL DISTRIBUTION WIDTH 14.6 % (11.7-14.4); WHITE BLOOD COUNT 7.32 x10e3/uL (4.8-10.8)
[2024-02-19 06:06] LABS: CALCIUM 9.3 mg/dL (8.4-10.2); CREATININE, SERUM 0.74 mg/dL (0.72-1.25)
[2024-02-19 06:33] LABS: TROPONIN I 0.052 ng/mL (0-0.300)
[2024-02-19] MEDS: LISINOPRIL 20 MG TAB PO SCH (08:52)
[2024-02-19] MEDS: METFORMIN HCL 500 MG TAB PO SCH (08:52)
[2024-02-19] MEDS: CLOPIDOGREL BISULFATE 75 MG TAB PO SCH (10:53)
[2024-02-19] MEDS: RIVAROXABAN 20 MG TABLET PO SCH (16:43)
[2024-02-20] VITALS: BP 141/41; PULSE 67; RESP 18; TEMP 98.7; O2SAT 100
[2024-02-20 04:00] VITALS: BP 110/55; PULSE 60; RESP 18; TEMP 98.4; O2SAT 100
[2024-02-20 08:07] VITALS: BP 124/66; PULSE 65; RESP 19; TEMP 98.3; O2SAT 98
[2024-02-20 08:38] VITALS: BP 124/66; PULSE 65; RESP 19; TEMP 98.3; O2SAT 98
[2024-02-20 08:58] VITALS: BP 124/66
== END 2024-02-20 10:47 | disposition home or self-care (01) ==
LOC: ER 10:47 → ERHOLD 11:55 → MED/SURG2 14:17
PROVIDERS: ADMIT Internal Medicine; ATTEND Internal Medicine
DX: R07.89 Other chest pain (principal); R53.1 Weakness; R20.0 Anesthesia of skin; I10 Essential (primary) hypertension; E11.65 Type 2 diabetes mellitus with hyperglycemia; Z79.84 Long term (current) use of oral hypoglycemic drugs; I48.91 Unspecified atrial fibrillation; Z79.01 Long term (current) use of anticoagulants; E78.5 Hyperlipidemia, unspecified; K21.9 Gastro-esophageal reflux disease without esophagitis; I25.10 Atherosclerotic heart disease of native coronary artery without angina pectoris; Z87.891 Personal history of nicotine dependence
CPT/HCPCS: 36415 ×2; 70496; 70498; 70551; 71045; 80048; 80053; 82550 ×2; 82948 ×2; 83690; 84484 ×2; 85025 ×2; 93005; 93306; 94799 ×2; 95819; 99284; G0378 ×3; J7050; Q9967

== ENCOUNTER 2024-04-11 13:58 | Emergency (ER) | payer OTHER ==
[~2024-04-11] VITALS: Ht 170.2 cm; Wt 88.5 kg
[2024-04-11 14:11] VITALS: PULSE 72; RESP 17; TEMP 98.1
[2024-04-11] MEDS: ALBUTEROL/IPRATROPIUM 3 ML NEB NEB ONE (14:57)
[2024-04-11] MEDS ORDERED: VENTOLIN HFA18 GM INH (15:41)
[2024-04-11 15:50] VITALS: BP 145/82; PULSE 76; RESP 18; TEMP 98.3; O2SAT 96
== END 2024-04-11 15:50 | disposition home or self-care (01) ==
LOC: ER 14:16
DX: R06.02 Shortness of breath (principal); J06.9 Acute upper respiratory infection, unspecified; R05.9 Cough, unspecified; R06.2 Wheezing; E11.9 Type 2 diabetes mellitus without complications
CPT/HCPCS: 71046; 99283